=== PATIENT | female | born 1955 | race Caucasian/White ===

== ENCOUNTER → 2016-08-08 | Outpatient (CLI) | payer OTHER | LOC: LAB.O 09:52 | PROVIDERS: ATTEND Family Medicine | DX: Z00.01 Encounter for general adult medical examination with abnormal findings (principal); E55.9 Vitamin D deficiency, unspecified; D51.3 Other dietary vitamin B12 deficiency anemia; R53.82 Chronic fatigue, unspecified ==

== ENCOUNTER → 2016-08-16 | Outpatient (CLI) | payer OTHER | END | disposition home or self-care (01) | LOC: LAB.O 11:32 | PROVIDERS: ATTEND Family Medicine | DX: E06.3 Autoimmune thyroiditis (principal) ==

== ENCOUNTER → 2016-09-21 | Outpatient (CLI) | payer OTHER ==
--- NOTE | 2016-09-22 16:38 | MAM ---
EXAM DESCRIPTION: 3D Screening BILATERAL CLINICAL HISTORY: 61 yearsFemaleSCREENING. No complaints. Postmenopausal.. COMPARISON: Baseline study at this facility. No prior reports available. TECHNIQUE: Bilateral CC and MLO projection full-field images, 3-D tomosynthesis digital mammographic technique. Also bilateral synthesized CC/ MLO full-field images. CAD not utilized. FINDINGS: The breast parenchymal density pattern is: Heterogeneously dense breast tissue, which may obscure small masses. No skin thickening or nipple retraction bilateral small axillary lymph nodes. Bilateral solitary microcalcifications. No focal, stellate mass or density, focal asymmetry , and no suspicious microcalcifications bilaterally. IMPRESSION: BI-RADS CATEGORY: 2 - BENIGN FINDINGS. FOLLOW UP: Routine digital bilateral screening, one year interval from September 2016. Written communication explaining the findings and follow-up, will be mailed to the patient and referring health care provider. According to the [employer], yearly mammograms are recommended starting at age 40 and continuing as long as a woman is in good health. Any breast change noted on a breast self-exam should be reported promptly to the patient's healthcare provider. Breast MRI is recommended for women with an approximately 20-25% or greater lifetime risk of breast cancer, including women with a strong family history of breast or ovarian cancer and women who have been treated for Hodgkin's disease. A negative mammographic report should not delay tissue diagnosis in patients with significant clinical history or physical findings. Extremely dense breast tissue limits the sensitivity of digital mammography. Electronically signed by: Garry Hirsch MD 09/22/2016 4:37 PM CDT Workstation: [id number]
== END ==
LOC: MAMMO 14:00
PROVIDERS: ATTEND Family Medicine
DX: Z12.31 Encounter for screening mammogram for malignant neoplasm of breast (principal)

== ENCOUNTER → 2017-02-24 | Outpatient (CLI) | payer OTHER ==
--- NOTE | 2017-02-25 15:01 | US ---
Thyroid Ultrasound Examination Clinical History: 61 years Female, NEHAL'S THYROIDITIS Comparison [None. ] Findings Right thyroid lobe is normal in size measuring 4.3 x 1.2 x 1.4 cm. Smooth homogeneous echogenicity is present without significant hyperemia. No concerning thyroid nodules are present. Left thyroid lobe is normal in size measuring 4.4 x 1.1 x 1.2 cm respectively. Smooth homogeneous echotexture is present. No hyperemia. No concerning thyroid nodules are present. Thyroid isthmus is normal in thickness. Cervical lymphadenopathy:None. Impression Unremarkable thyroid ultrasound. Electronically signed by: Kyle Lopez MD 02/25/2017 3:00 PM MARKETING SERVICES COORDINATOR
== END | disposition home or self-care (01) ==
LOC: US 13:50
PROVIDERS: ATTEND Family Medicine
DX: E06.3 Autoimmune thyroiditis (principal)

== ENCOUNTER → 2017-03-04 | Outpatient (CLI) | payer OTHER | END | disposition home or self-care (01) | LOC: LAB.O 10:27 | PROVIDERS: ATTEND Obstetrics & Gynecology | DX: Z01.419 Encounter for gynecological examination (general) (routine) without abnormal findings (principal); E03.9 Hypothyroidism, unspecified ==

== ENCOUNTER 2017-08-24 18:12 | Emergency (ER) | payer OTHER ==
--- NOTE | 2017-08-24 18:40 | ED.PDOC ---
History of Present Illness - General Chief Complaint: Bite: Animal/Insect/Human Stated Complaint: Snakebite to R 4th finger Time Seen by Provider: 08/24/17 18:33 Source: patient Exam Limitations: no limitations - History of Present Illness Initial Comments: khris Stewart 62 y/o female stated she was picking up a squash from her neighbors backyard and felt sudden sharp pain at the tip of her 4th digit; lifted up the squash and noted small snake underneath the veggie ,daughter was with her and she grabbed the hoe killed the snake brought it to hospital.Denies chest pains,nausea/vomiting.She is alert remembers incident.No chronic medical problem.Poison Control notified. Occurred: just prior to arrival Pain - Upper Extremity: moderate: Hand, right - right ring finger Method of Injury: other - snake bite baby copperhead Improving Factors: rest Worsening Factors: movement Allergies/Adverse Reactions: Allergies Penicillins Allergy (Verified 08/24/17 18:18) Hives Home Medications: Ambulatory Orders Levothyroxine Sodium [Levoxyl] 75 mcg PO DAILY 08/24/17 Review of Systems - Review of Systems Constitutional: States: no symptoms reported EENTM: States: no symptoms reported Respiratory: States: no symptoms reported Cardiology: States: no symptoms reported Skin: States: see HPI All other Systems: Reviewed and Negative, No Change from Baseline Past Medical History (General) - Patient Medical History Hx Stroke: No Hx Congestive Heart Failure: No Hx Thyroid Disease: Yes Hx Diabetes: No Hx MRSA: No Surgical History: other - hysterectomy - Vaccination History Hx Tetanus, Diphtheria Vaccination: - 2014 Hx Influenza Vaccination: Yes - 2017 - Social History Hx Tobacco Use: No Hx Alcohol Use: No Hx Depression: No Feels Threatened In Home Enviroment: No Feels Threatened In a Relationship: No Hx Physical Abuse: No Hx Emotional Abuse: No Hx Suspected Abuse: No Family Medical History - Family History Mother Living Status: Hx Family;Other: Multiple sclerosis Physical Exam - Physical Exam General Appearance: Alert, Comfortable, No apparent distress Eyes, Ears, Nose, Throat Exam: normal ENT inspection, pharynx normal Neck: supple, normal inspection Cardiovascular/Respiratory: regular rate, rhythm, normal peripheral pulses, tachycardia - hr-100 Abdominal Exam: non-tender Back Exam: normal inspection, no CVA tenderness, no vertebral tenderness Elbow/Forearm Exam: normal inspection, no evidence of injury Wrist Exam: normal inspection, no evidence of injury Hand Exam: ecchymosis - moderate ecchymosis ring finger right, swelling - distal phalnx right ring finger Neuro/Tendon: normal sensation, normal tendon functions Mental Status: alert, oriented x 3 Skin Exam: normal color, warm/dry Progress - Progress Progress: 08/24/17 18:57 Vital Signs - 8 hr 08/24/17 18:15 Temperature 98.5 F Pulse Rate [ 95 H Left Radial] Respiratory 20 Rate Blood Pressure 166/85 [Left Arm] O2 Sat by Pulse 96 Oximetry 08/24/17 20:22 Poison control recommend starting Nematologist tenzin if swelling extends beyond wrist and after repeat exam noted swelling just above wrist joint after 2 1/2 hours.Also called up [facility]- for transfer. - Results/Orders Results/Orders: 08/24/17 18:21 CARDIAC ENZYME GROUP Stat COMPLETE METABOLIC PROFILE Stat 08/24/17 18:23 Sodium Chloride 0.9% 1000ML [Ns 1000 ml] 1,000 ml IVS .QD 08/24/17 18:24 Telemetry .ONCE 08/24/17 18:30 EKG STAT 08/24/17 20:09 URINALYSIS Stat 08/24/17 20:15 Antivenin Snake Polyimmune Tenzin [Crofab Ovine] 6 ea Sodium Chloride 0.9% 250Ml [NS 250ml] 250 ml IV INFUS ONCE 08/25/17 09:00 Pulse Ox Daily Laboratory Results - last 24 hr 08/24/17 08/24/17 08/24/17 18:21 18:21 18:21 WBC 8.6 RBC 4.32 Hgb 13.8 Hct 40.2 MCV 93.2 MCH 31.9 H MCHC 34.2 RDW 13.4 Plt Count 291 MPV 8.0 Absolute Neuts (auto) 3.40 Absolute Lymphs (auto) 4.30 H Absolute Monos (auto) 0.60 Absolute Eos (auto) 0.30 Absolute Basos (auto) 0.10 Neutrophils % 39.8 L Lymphocytes % 49.7 Monocytes % 6.9 Eosinophils % 3.0 Basophils % 0.6 PT 8.9 L INR 0.89 L PTT (SP) 27.4 Fibrinogen 373 Fibrin Degrad Products Sodium 138 Potassium 3.4 L Chloride 104 Carbon Dioxide 27 Anion Gap 10.4 L BUN 12 Creatinine 0.93 BUN/Creatinine Ratio 12.9 Random Glucose 86 Serum Osmolality 274.7 L Calcium 9.6 Total Bilirubin 0.6 AST 21 ALT 15 Alkaline Phosphatase 80 Creatine Kinase 54 CK-MB (CK-2) 0.9 Troponin I < 0.02 Serum Total Protein 7.5 Albumin 4.4 Globulin 3.1 Albumin/Globulin Ratio 1.4 08/24/17 19:06 WBC RBC Hgb Hct MCV MCH MCHC RDW Plt Count MPV Absolute Neuts (auto) Absolute Lymphs (auto) Absolute Monos (auto) Absolute Eos (auto) Absolute Basos (auto) Neutrophils % Lymphocytes % Monocytes % Eosinophils % Basophils % PT INR PTT (SP) Fibrinogen Fibrin Degrad Products <10 Sodium Potassium Chloride Carbon Dioxide Anion Gap BUN Creatinine BUN/Creatinine Ratio Random Glucose Serum Osmolality Calcium Total Bilirubin AST ALT Alkaline Phosphatase Creatine Kinase CK-MB (CK-2) Troponin I Serum Total Protein Albumin Globulin Albumin/Globulin Ratio - EKG/XRAY/CT EKG: Sinus, Tachy, no ST T wave changes Comments: HR-100 XRAY: chest - no acute process Departure - Departure Clinical Impression: Swelling of right hand Bite, snake, venomous Qualifiers: Encounter type: initial encounter Injury intent: accidental or unintentional Qualified Code(s): T63.001A - Toxic effect of unspecified snake venom, accidental (unintentional), initial encounter Time of Disposition: 20:19 Disposition: Transfer to Hospital Departure Forms: Patient Portal Self Enrollment Referrals: Kevan Gonzales III, MD [Primary Care Provider] - 1-2 Weeks Home Medications: Ambulatory Orders Levothyroxine Sodium [Levoxyl] 75 mcg PO DAILY 08/24/17 Transfer to Outside Facility - Transfer Information Accepting Provider:: Dr. Santiago Accepting Facility: [facility]
[2017-08-24] MEDS ORDERED: MORPHINE SULFATE INJ 10 MG/ML VIAL ONE (18:47)
--- NOTE | 2017-08-24 18:47 | RAD ---
EXAM DESCRIPTION: Chest,1 View CLINICAL HISTORY: 62 years Female, Snakebite protocol COMPARISON: None. TECHNIQUE: AP portable chest. FINDINGS: Heart size is normal with normal pulmonary vascularity. Reticulonodular changes in the right apex are consistent with granulomatous scarring. No acute-appearing consolidation. No pulmonary mass or worrisome nodule. No pneumothorax or pleural effusion. Leftward curvature of the thoracic spine is seen with mild spurring. IMPRESSION: No acute process is identified in the chest. Electronically signed by: Xavier Arshad MD 08/24/2017 6:46 PM CDT
[2017-08-24] MEDS: MORPHINE SULFATE INJ 10 MG/ML VIAL IV ONE (18:48)
[2017-08-24] MEDS: SODIUM CHLORIDE 0.9% 1000ML 1,000 ML IVS PRN (19:08)
[2017-08-24] MEDS: SODIUM CHLORIDE 0.9% 1000ML 1,000 ML IVS ONE (19:09)
[2017-08-24] MEDS ORDERED: ANTIVENIN SNAKE POLYIMMUNE FAB 1 EA VIAL ONE (20:13)
[2017-08-24] MEDS ORDERED: SODIUM CHLORIDE 0.9% 250ML 250 ML ONE (20:23)
[2017-08-24] MEDS: ANTIVENIN SNAKE POLYIMMUNE FAB 6 EA in SODIUM CHLORIDE 0.9% 250ML 250 ML IV INFUS ONE (20:35)
[2017-08-24 20:43] VITALS: O2SAT 99
[2017-08-24 20:44] VITALS: TEMP 97.5
[2017-08-24] MEDS: ONDANSETRON INJ 4 MG/2 ML VIAL IV ONE (20:57)
[2017-08-24 21:01] VITALS: BP 137/82
== END 2017-08-24 21:03 | disposition short-term general hospital (02) ==
LOC: ER 18:12
DX: T63.091A Toxic effect of venom of other snake, accidental (unintentional), initial encounter (principal); S60.041A Contusion of right ring finger without damage to nail, initial encounter; E07.9 Disorder of thyroid, unspecified; Z88.0 Allergy status to penicillin; X58.XXXA Exposure to other specified factors, initial encounter; Y93.89 Activity, other specified; Y92.007 Garden or yard of unspecified non-institutional (private) residence as the place of occurrence of the external cause

== ENCOUNTER 2017-08-27 13:40 | Emergency (ER) | payer OTHER ==
[2017-08-27] MEDS ORDERED: SULFA/TRIMETH 800/160 (DS) TAB 1 EA TAB PO ONE (13:56)
[2017-08-27] MEDS ORDERED: IBUPROFEN 200 MG TAB PO ONE (13:57)
[2017-08-27] MEDS ORDERED: HYDROCOD/APAP 10/325 (ER DISP) # 3 tablets PO ONE (13:57)
--- NOTE | 2017-08-27 13:58 | ED.PDOC ---
History of Present Illness - General Chief Complaint: Skin/Abrasion/Tear Time Seen by Provider: 08/27/17 13:55 Source: patient, Vital Signs reviewed, family - History of Present Illness Initial Comments: She was seen here 3 days ago for a snake bite to her right ring finger, given CroFab & transferred. She received no other at the receiving hospital & was discharged the following afternoon. She showed me a picture of the finger from then & it looks the same to me but she feels it is more swollen, red & painful. She is concerned it has become infected. Timing/Duration: 24 hours Severity: mild Improving Factors: nothing Worsening Factors: nothing Associated Symptoms: denies symptoms Allergies/Adverse Reactions: Allergies Penicillins Allergy (Verified 08/27/17 14:15) Hives Home Medications: Ambulatory Orders Levothyroxine Sodium [Levoxyl] 75 mcg PO DAILY 08/24/17 Sulfa/Trimeth 800/160 (Ds) Tab [Bactrim DS Tab] 1 ea PO BID #20 tab 08/27/17 Review of Systems - Review of Systems Constitutional: States: see HPI. Denies: fever Gastrointestinal/Abdominal: Denies: nausea Musculoskeletal: States: other - finger pain Skin: States: see HPI, change in color Neurological: States: no symptoms reported Hematologic/Lymphatic: States: see HPI Past Medical History (General) - Patient Medical History Hx Stroke: No Hx Congestive Heart Failure: No Hx Thyroid Disease: Yes Hx Diabetes: No Hx MRSA: No - Vaccination History Hx Tetanus, Diphtheria Vaccination: - 2014 Hx Influenza Vaccination: Yes - 2017 - Social History Hx Tobacco Use: No Hx Alcohol Use: No Hx Depression: No Hx Physical Abuse: No Hx Emotional Abuse: No Hx Suspected Abuse: No Family Medical History - Family History Mother Living Status: Hx Family;Other: Multiple sclerosis Physical Exam - Physical Exam General Appearance: Alert, Comfortable, No apparent distress Respiratory: no respiratory distress Extremity: normal range of motion, normal capillary refill, inflammation - perhaps some fluctuamce to the pad of the ring finger, swelling Neurologic: alert, normal mood/affect, oriented x 3 Skin Exam: warm/dry, other - area is reddened Progress - Progress Progress: 08/27/17 23:55 Successful digital block to the right ring finger. The affected area was aspirated with an 18 ga needle. No pus. Probably cellulitis with phlegmon. Appears more c/w staph rather than strep. Departure - Departure Clinical Impression: Cellulitis Qualifiers: Site of cellulitis: extremity Site of cellulitis of extremity: upper extremity Laterality: right Qualified Code(s): L03.113 - Cellulitis of right upper limb Time of Disposition: 15:08 Disposition: Discharge to Home or Self Care Condition: Good Departure Forms: ED Discharge - Pt. Copy, Patient Portal Self Enrollment Instructions: DI for Wound Infection Referrals: Kevan Gonzales III, MD [Primary Care Provider] - 08/29/17 Prescriptions: Sulfa/Trimeth 800/160 (Ds) Tab [Bactrim DS Tab] 1 ea PO BID #20 tab Home Medications: Ambulatory Orders Levothyroxine Sodium [Levoxyl] 75 mcg PO DAILY 08/24/17 Sulfa/Trimeth 800/160 (Ds) Tab [Bactrim DS Tab] 1 ea PO BID #20 tab 08/27/17
[2017-08-27 14:18] VITALS: TEMP 97.6
[2017-08-27] MEDS ORDERED: HYDROcodone 10MG/APAP 325MG 1 EA TAB PO ONE (14:22)
--- NOTE | 2017-08-27 14:35 | RAD ---
EXAM DESCRIPTION: Fingers,Right CLINICAL HISTORY: infected puncture wound COMPARISON: None. TECHNIQUE: 3 views right FINDINGS: Mild soft tissue swelling is observed about the proximal interphalangeal joint of the fourth digit. No bone or joint abnormality is seen. No radiopaque foreign body is observed in the soft tissues. No plain film evidence of osteomyelitis is seen. IMPRESSION: Soft tissue swelling is observed at the proximal interphalangeal joint of the fourth digit. No fracture or foreign body is observed. Electronically signed by: Kevan Venegas MD 08/27/2017 2:34 PM CDT
[2017-08-27] MEDS ORDERED: POVIDONE IODINE 10 % 15 ML UD TOP ONE (14:52)
[2017-08-27 15:44] VITALS: BP 128/70; O2SAT 92
== END 2017-08-27 15:28 | disposition home or self-care (01) ==
LOC: ER 13:40
DX: L03.113 Cellulitis of right upper limb (principal); E07.9 Disorder of thyroid, unspecified; Z88.0 Allergy status to penicillin

== ENCOUNTER → 2017-09-14 | Outpatient (CLI) | payer OTHER ==
--- NOTE | 2017-09-14 15:43 | US ---
EXAM DESCRIPTION: Soft Tissue,Extremity: ULTRASOUND. CLINICAL HISTORY: SNAKEBITE. Right hand fatigue and swelling right arm. COMPARISON: None Available. TECHNIQUE: Two -dimensional and doppler sonographic evaluation of the deep venous system of the right upper extremity. FINDINGS: Doppler evaluation shows normal color flow and normal phasicity and augmentation of the right subclavian, jugular, axillary, and basilic veins. These right upper extremity deep veins showed normal occlusion with transducer pressure. Two-dimensional survey showed no echogenic thrombus within these veins. Carrera scale evaluation of the area of swelling showed normal echogenicity of the muscles soft tissues and tendons with normal Doppler vascularity. No distinct solid mass or cyst. No abnormal calcifications or parenchymal edema. IMPRESSION: Duplex ultrasound evaluation of the upper aspect of the right upper extremity deep venous system showing no thrombosis. Carrera scale evaluation of the region of interest in the upper arm showed no sonographic abnormalities . Electronically signed by: Garry Hirsch MD 09/14/2017 3:42 PM CDT
== END ==
LOC: LAB.O 10:23
PROVIDERS: ATTEND Family Medicine
DX: E06.3 Autoimmune thyroiditis (principal); E55.9 Vitamin D deficiency, unspecified; E53.8 Deficiency of other specified B group vitamins; M79.7 Fibromyalgia; T63.001D Toxic effect of unspecified snake venom, accidental (unintentional), subsequent encounter; I82.621 Acute embolism and thrombosis of deep veins of right upper extremity; Z79.899 Other long term (current) drug therapy

== ENCOUNTER → 2018-03-02 | Outpatient (CLI) | payer OTHER ==
--- NOTE | 2018-03-02 14:48 | US ---
US THYROID CLINICAL STATEMENT: E06.3. . No palpable mass. No previous thyroid surgery or therapy. COMPARISON: Ultrasound thyroid 02/24/2017. FINDINGS: Size right thyroid lobe: 4.5 x 1.6 x 1.2 cm Size left thyroid lobe: 4.4 x 1.1 x 1.3 cm Size isthmus: 0.1 cm Estimated total number of nodules greater than or equal to 1 cm: None. Nodule 1: Size: 0.7 x 0.5 x 0.4 cm Location: Right Lower Composition: solid or almost completely solid: 2 points Echogenicity: hypoechoic: 2 points Shape: wider than tall: 0 points Margins: smooth: 0 points Echogenic foci: none: 0 points ACR Total Points: 4; ACR TI-RADS risk category: TR4 - moderately suspicious nodule. Nodule 2: Size: 0.3 x 0.3 x 0.2 cm Location: Left Upper Composition: solid or almost completely solid: 2 points Echogenicity: hypoechoic: 2 points Shape: wider than tall: 0 points Margins: smooth: 0 points Echogenic foci: none: 0 points ACR Total Points: 4; ACR TI-RADS risk category: TR4 - moderately suspicious nodule. Nodule 3: Size: 0.4 x 0.4 x 0.3 cm Location: Left Mid Composition: spongiform: 0 points Echogenicity: hypoechoic: 2 points Shape: wider than tall: 0 points Margins: smooth: 0 points Echogenic foci: none: 0 points ACR Total Points: 2; ACR TI-RADS risk category: TR2 - nonsuspicious nodule. Nodule 4: Size: 0.9 x 0.7 x 0.6 cm Location: Left Lower Composition: spongiform: 0 points Echogenicity: hypoechoic: 2 points Shape: wider than tall: 0 points Margins: smooth: 0 points Echogenic foci: none: 0 points ACR Total Points: 4; ACR TI-RADS risk category: TR4 - moderately suspicious nodule. The soft tissue surrounding the thyroid gland show no dominant solid mass. No distinct cyst. No parenchymal edema or large calcifications. No overlying skin changes. Normal vascularity. IMPRESSION: 1. Nodule 1: ACR TI-RADS 2017 Category TR4. Recommend: No further follow-up.. Recommendations based upon [employer] recommendations and ACR TI-RADS 2017 guidelines. Please see below*. 2. Nodule 2: ACR TI-RADS 2017 Category TR4. Recommend: No further follow-up. 3. Nodule 3: ACR TI-RADS 2017 Category TR2. Recommend: No further follow-up. 4. Nodule 4: ACR TI-RADS 2017 Category TR2. Recommend: No further follow-up. The nodules are stable compared to the prior study one year ago. Soft tissues unremarkable. *ACR TI-RADS 2017 Recommendations: TR1: No FNA or follow up TR2: No FNA or follow up TR3: FNA if >/= 2.5 cm, follow up if 1.5 - 2.4 cm in 1, 3, and 5 years TR4: FNA if >/= 1.5 cm, follow up if 1.0 - 1.4 cm in 1, 2, 3, and 5 years TR5: FNA if >/= 1.0 cm, follow up if 0.5 - 0.9 cm every year for 5 years ACR TI-RADS recommends that no more than two nodules with the highest ACR TI-RADS total point should be biopsied and no more than four nodules should be followed. Electronically signed by: Garry Hirsch MD 03/02/2018 2:47 PM [facility]
== END ==
LOC: US 10:00
PROVIDERS: ATTEND Family Medicine
DX: E06.3 Autoimmune thyroiditis (principal)

== ENCOUNTER → 2019-03-10 | Outpatient (CLI) | payer BC | LOC: LAB.O 09:12 | PROVIDERS: ATTEND Family Medicine | DX: Z00.00 Encounter for general adult medical examination without abnormal findings (principal) ==

== ENCOUNTER → 2019-05-30 | Outpatient (CLI) | payer BC ==
--- NOTE | 2019-05-30 09:26 | RAD ---
EXAM DESCRIPTION: Chest,2 Views CLINICAL HISTORY: DYSPNEA COMPARISON: August 24, 2017 FINDINGS: The cardiomediastinal silhouette is unremarkable. The posterior costophrenic angles are excluded from the lateral view, but there is no airspace consolidation or apparent pleural effusion. The bronchovascular markings are within normal limits, and the lungs are not hyperinflated. There is no pneumothorax or acute fracture. IMPRESSION: Negative exam. Electronically signed by: Tucker Jackson MD 05/30/2019 9:25 AM CDT
== END ==
LOC: RAD 09:04
PROVIDERS: ATTEND Family Medicine
DX: R06.00 Dyspnea, unspecified (principal)

== ENCOUNTER → 2019-12-14 | Outpatient (CLI) | payer BC, SELFPAY ==
--- NOTE | 2019-12-15 12:01 | US ---
US THYROID CLINICAL STATEMENT:64 years Female NONTOXIC SINGLE THYROID NODULE. No palpable mass. No prior surgery. Patient taking thyroid medication. COMPARISON: Ultrasound thyroid February 2018. TECHNIQUE: Transcutaneous scanning, grayscale and Doppler modes. FINDINGS: Size right thyroid lobe: 4.0 x 1.0 x 1.3 cm Size left thyroid lobe: 4.3 x 1.0 x 1.0 cm Size isthmus: 0.2 cm Estimated total number of nodules greater than or equal to 1 cm: 1. Nodule 1 (compared to the prior study): Size: 0.8 x 0.6 x 0.3 cm. Stable since the prior study. Location: Right Lower Composition: solid or almost completely solid: 2 points Echogenicity: very hypoechoic: 3 points Shape: wider than tall: 0 points Margins: smooth: 0 points Echogenic foci: none: 0 points ACR Total Points: 4; ACR TI-RADS risk category: TR4 - moderately suspicious nodule. Nodule 2 on the prior study is no longer present. Nodule 3: Size: 0.5 X 0.4 x 0.3 cm. Stable since the prior study. Location: Left Mid Composition: spongiform: 0 points Echogenicity: hypoechoic: 2 points Shape: wider than tall: 0 points Margins: smooth: 0 points Echogenic foci: none: 0 points ACR Total Points: 2; ACR TI-RADS risk category: TR2 - nonsuspicious nodule. Nodule 4 (compared to the prior study): Size: 1.0 x 0.6 x 0.5 cm. 0.9 x 0.7 x 0.6 on the prior study. Location: Left Lower Composition: solid or almost completely solid: 2 points Echogenicity: hypoechoic: 2 points Shape: wider than tall: 0 points Margins: smooth: 0 points Echogenic foci: none: 0 points ACR Total Points: 4; ACR TI-RADS risk category: TR4 - moderately suspicious nodule. Soft tissue in the thyroid gland shows no evidence of dominant solid mass, distinct cysts, fluid collection, or large calcifications. IMPRESSION: 1. Nodule 4: ACR TI-RADS 2017 Category TR4. Recommend: Follow-up ultrasound in 1 year.. Recommendations based upon [employer] recommendations and ACR TI-RADS 2017 guidelines. Please see below*. 2. Nodule 1: ACR TI-RADS 2017 Category TR4. Recommend: No further follow-up. 3. Nodule 3: ACR TI-RADS 2017 Category TR2. Recommend: No further follow-up. 4. Soft tissue in the thyroid gland is unremarkable. *ACR TI-RADS 2017 Recommendations for imaging follow-up of nodules (baseline study): TR1: No FNA or follow up TR2: No FNA or follow up TR3: FNA if >/= 2.5 cm, follow up if 1.5 - 2.4 cm in 1, 3, and 5 years TR4: FNA if >/= 1.5 cm, follow up if 1.0 - 1.4 cm in 1, 2, 3, and 5 years TR5: FNA if >/= 1.0 cm, follow up if 0.5 - 0.9 cm every year for 5 years ACR TI-RADS recommends that no more than two nodules with the highest ACR TI-RADS total point should be biopsied and no more than four nodules should be followed. These recommendations do not apply to patients with increased risk for thyroid cancer or patients with symptomatic thyroid disease. Electronically signed by: Garry Hirsch MD 12/15/2019 11:59 AM CDT
== END ==
LOC: US 08:00
PROVIDERS: ATTEND Family Medicine
DX: E04.2 Nontoxic multinodular goiter (principal)

== ENCOUNTER → 2019-12-28 | Outpatient (CLI) | payer BC ==
--- NOTE | 2019-12-31 18:37 | MAM ---
EXAM DESCRIPTION: 3D Screening BILATERAL : Digital Mammography. CLINICAL HISTORY: 64 years Female ANNUAL SCREENING no complaints. No family history of breast cancer. Menarche age 15. Childbirth age 29. Menopause age unknown. No HRT.. Lifetime risk of developing breast cancer (Tyrer-Cuzick model)(%): 7.7. COMPARISON: Bilateral screening digital breast tomosynthesis September 2016. TECHNIQUE: Bilateral CC and MLO projection full-field images, digital tomosynthesis mammographic technique. Bilateral digital 2-D full-field MLO images. CAD available for 2-D images. FINDINGS: The breast parenchymal density pattern is: Heterogeneously dense breast tissue, which may obscure small masses. No skin thickening or nipple retraction. Vascular calcifications. Solitary microcalcifications. Axillary nodes. Accessory axillary breast tissue. No new focal, stellate mass or density, focal asymmetry , and no suspicious microcalcifications bilaterally. Stable mammograms compared to prior study. IMPRESSION: Benign exam. BIRAD CATEGORY: 2 BENIGN FINDINGS. RECOMMENDATIONS: FOLLOW UP: Routine digital bilateral mammographic screening, one year interval from December 2019. Written communication explaining the IMPRESSION and follow-up, will be mailed to the patient and referring health care provider. The FINDINGS and the FOLLOW-UP plan were reviewed in person with the patient after the examination. The FINDINGS and the FOLLOW-UP plan were reviewed by Dr. Hirsch during video conference with the patient after the examination. According to the [employer], yearly mammograms are recommended starting at age 40 and continuing as long as a woman is in good health. Any breast change noted on a breast self-exam should be reported promptly to the patient's healthcare provider. Breast MRI is recommended for women with an approximately 20-25% or greater lifetime risk of breast cancer, including women with a strong family history of breast or ovarian cancer and women who have been treated for Hodgkin's disease. A negative mammographic report should not delay tissue diagnosis in patients with significant clinical history or physical findings. Extremely dense breast tissue limits the sensitivity of digital mammography. Electronically signed by: Garry Hirsch MD 12/31/2019 6:35 PM CDT
== END ==
LOC: MAMMO 08:00
PROVIDERS: ATTEND Family Medicine
DX: Z12.31 Encounter for screening mammogram for malignant neoplasm of breast (principal)